=== PATIENT | male | born 2000 | race Two or more races ===

== ENCOUNTER 2023-04-24 17:07 | Emergency (ER) | payer MEDICAID ==
[~2023-04-24] VITALS: Ht 182.9 cm; Wt 123.3 kg
[2023-04-24 17:11] VITALS: BP 131/87; PULSE 120; RESP 18; O2SAT 98
== END 2023-04-24 18:29 | disposition left against medical advice (07) ==
LOC: ER 17:07
DX: S81.812A Laceration without foreign body, left lower leg, initial encounter (principal); Z53.21 Procedure and treatment not carried out due to patient leaving prior to being seen by health care provider; W26.8XXA Contact with other sharp object(s), not elsewhere classified, initial encounter; Y93.89 Activity, other specified; Y92.89 Other specified places as the place of occurrence of the external cause; Y99.8 Other external cause status